=== PATIENT | male | born 1955 | race Caucasian/White ===

== ENCOUNTER 2023-05-07 11:01 | Outpatient (AMB) | payer MEDICARE, SELFPAY ==
[2023-05-07 11:07] VITALS: BP 130/70; PULSE 59; O2SAT 96; BMI 37.3
--- NOTE | 2023-05-07 11:07 | A.OFFPC_ITS ---
Vital Signs 05/07/23 11:07 Height 5 ft 7 in Weight 238 lb BMI 37.3 BP 130/70 Blood Pressure Location Lt brachial Position Sitting Pulse 59 Pulse Source Pulse Oximeter Pulse Oximetry (%) 96 Oxygen Delivery Method Room Air Intake Visit Reasons: f/u diabetes, hypertension and chronic conditions Intake Note: Patient is here for hypertension and chronic conditions. Allergies No Known Allergies Allergy (Verified 05/07/23 11:19) Tobacco use date assessed: 05/07/23 Fall risk assessment: No Falls in past year Last assessed Fall Risk: 05/07/23 Dental Screening Dental Screen Date: 05/07/23 Did you have a dental visit in the last 12 months?: Yes Did you have a dental problem in the last 6 months where you did not have access to dental care?: No Was dental information given to patient?: Patient has dentist HPI f/u diabetes, hypertension and chronic conditions HPI Details 67 y/o male presents to f/u diabetes typ e 1, hypertension and chronic conditions. Diabetes type 1 managed at the [facility]. Labs were drawn at [facility] 05/01/23. TSH level 3.13. Triglycerides 91. HDL low at 33. LDL 52. TC 103. He is on artovastatin 80mg and ezetimibe 10mg. Blood pressure today 130/70. He is on lisinopril 10mg. 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 1. Little interest or pleasure in doing things: not at all 2. Feeling down, depressed, or hopeless: not at all 3. Trouble falling or staying asleep, or sleeping too much: not at all 4. Feeling tired or having little energy: not at all 5. Poor appetite or overeating: not at all 6. Feeling bad about yourself - or that you are a failure or have let yourself or your family down: not at all 7. Trouble concentrating on things, such as reading the newspaper or watching television: not at all 8. Moving or speaking so slowly that other people could have noticed. Or the opposite - being so fidgety or restless that you have been moving around a lot more than usual: not at all 9. Thoughts that you would be better off or of hurting yourself in some way: not at all Total score: 0 Depression Screening Interpretation: Negative Depression Screening Done: Yes 85522 - PHQ-9 Billing: Yes Source: Developed by Drs. Enio Do, Jessica Queen, Teddy Davis and colleagues, with an educational min from [employer]. Thrive Questionnaire Date Thrive assessed: 05/07/23 I am a: Patient What is your living situation today?: I have a steady place to live Within the past 12 months, did the food you bought not last and you didn't have the money to get more?: Never true Within the past 12 months, did you worry whether your food would run out before you got money to buy more?: Never true Do you have trouble paying for medicines?: No Do you have trouble getting transportation to medical appointments?: No Do you have trouble paying your heating and electricity bill?: No Do you have trouble taking care of your child, family member or friend?: No Do you have trouble with day-to-day activities such as bathing, preparing meals, shopping, managing finances, etc.?: No Are you currently unemployed and looking for a job?: No Are you interested in more education?: No THRIVE Score: 0 AUDIT C Alcohol Use Questionnaire (AUDIT-C) 1. How often do you have a drink containing alcohol?: Never 3. How often do you have six or more drinks on one occasion?: Never Total Score: 0 ASIF-7 AMB Questionnaire ASIF-7 Date ASIF - 7 assessed: 05/07/23 Feeling nervous, anxious, or on edge: 0 = Not at all Not being able to stop or control worryin = Not at all Worrying too much about different things: 0 = Not at all Trouble relaxin = Not at all Being so restless that it is hard to sit still: 0 = Not at all Becoming easily annoyed or irritable: 0 = Not at all Feeling afraid as if something awful might happen: 0 = Not at all Total ASIF-7 score (0-4 normal; 5-9 mild; 10-14 moderate; 15-21 severe): 0 Source: Developed by Drs. Enio Do, Jessica Queen, Teddy Davis and colleagues, with an educational min from [employer]. ASIF-7 Assessment Billing ASIF-7 Assessment Tool: ASIF-7 Assessment 48540 Review of Systems Const Denies chills, Denies fatigue, Denies fever(s), Denies headache(s) and Denies weakness ENT Denies dizziness and Denies headache(s) Card Denies chest pain, Denies lightheadedness, Denies dyspnea and Denies other (Palpitations) Resp Denies cough, Denies dyspnea, Denies wheezing and Denies other ( shortness of breath) Musc Denies numbness and Denies tingling Neuro Denies dizziness, Denies headache(s), Denies numbness, Denies tingling, Denies paresthesias and Denies weakness Psych Denies anxiety and Denies depression Endo Denies fatigue Aller/Immun Denies wheezing Physical exam (Primary Care) Vital Signs: Last Vital Signs Pulse 59 05/07/23 11:07 BP 130/70 05/07/23 11:07 Pulse Ox 96 05/07/23 11:07 Oxygen Delivery Method Room Air 05/07/23 11:07 BMI result Body Mass Index 37.3 Tobacco/Smoking Status: Tobacco use Status Tobacco use date assessed 05/07/23 05/07/23 11:25 Patient Tobacco Use Status Never used Tobacco 05/07/23 11:09 e-Cigarette/Vaping Use Never Used 05/07/23 11:09 PHQ-9: PHQ-9 Score PHQ-9: Total score 0 05/07/23 11:25 Depression Screening Interpretation: Negative Thrive Assessment: Date of Thrive Assessment Date Thrive assessed 05/07/23 05/07/23 11:25 Const General: no acute distress and well developed Nutritional Appearance: well nourished Orientation/consciousness: patient oriented x3 HENMT Head: Yes normocephalic and Yes atraumatic Eyes General: appearance normal, both eyes and all related structures Pupils: Equal, round and reactive pupils present EOM: EOMs intact bilaterally Resp Effort & Inspection: normal respiratory effort Auscultation: clear to auscultation bilaterally Cardio Rate: regular rate Rhythm: regular rhythm Heart sounds: S1 normal heart sound present, S2 normal heart sound present, no gallops, no murmurs and no rubs Neuro General: patient oriented x3 and gait normal Cranial nerves: Yes Equal, round and reactive pupils present Psych Affect: normal affect Assessment and Plan Assessment & Plan (1) Diabetes type 1, controlled: Code(s): E10.9 - Type 1 diabetes mellitus without complications Plan: A1c?on?April? was?6.6%;?good?control.??Goal?is?less?than?7.0% Continue?current?medication?regimen Follow-up?at?the[facility] Up-to-date?with?eye?exam No?wounds?abrasions?or?calluses?on?feet?and?microfilament?test?done?at[facility]?was?normal (2) Essential hypertension: Code(s): I10 - Essential (primary) hypertension Plan: Blood?pressure?is?well?controlled.??Goal?is?less?than?140/90 Continue?current?medication (3) Hyperlipidemia: Code(s): E78.5 - Hyperlipidemia, unspecified Plan: Lipids?well?controlled?on?atorvastatin?and?Zetia,?except?HDL?is?too?low. Encouraged?exercise Patient?plans?to?start?walking?with?his?brother?this?spring (4) Hypothyroidism (acquired): Code(s): E03.9 - Hypothyroidism, unspecified Plan: Thyroid?hormone?levels?within?normal?range Continue?current?medication?and?we?will?recheck?in?six-months (5) Low HDL (under 40): Code(s): E78.6 - Lipoprotein deficiency Plan: As?above,?increase?exercise (6) Low vitamin D level: Code(s): R79.89 - Other specified abnormal findings of blood chemistry Plan: Mildly?low?vitamin- D?level.??Encouraged?him?to?consider?a?supplement?through?the?winter?months. He?can?use?an?OTC?supplement?and?if?vitamin- D?is?still?low?at?next?check,?we?can?consider?a?prescription?supplement. Orders: Orders Comprehensive [place]. Panel Fast Today Z00.00 - Encounter for general adult medical examination without abnormal findings Lipid Panel Today Z00.00 - Encounter for general adult medical examination without abnormal findings Vitamin D 25-OH Total Today E55.9 - Vitamin D deficiency, unspecified Complete Blood Count Auto Diff Today Z00.00 - Encounter for general adult medical examination without abnormal findings Microalbumin, Random (w Creat) Today I10 - Essential (primary) hypertension Free T4 (Free Thyroxine) Today E03.9 - Hypothyroidism, unspecified Thyroid Stimulating Hormone Today E03.9 - Hypothyroidism, unspecified Triiodothyronine T3 Total Today E03.9 - Hypothyroidism, unspecified Coding Level of Care Code Est Pt Level 4 (69082) Diagnoses Diabetes type 1, controlled E10.9 Essential hypertension I10 Hyperlipidemia E78.5 Hypothyroidism (acquired) E03.9 Low HDL (under 40) E78.6 Low vitamin D level R79.89 Additional Codes ASIF-7 Assessment Billing - ASIF-7 Assessment Tool: ASIF-7 Assessment [id number] ([id number])
== END 2023-05-07 12:09 | disposition home or self-care (01) ==
PROVIDERS: Visit Provider Family Medicine
DX: E10.9 Type 1 diabetes mellitus without complications (principal); I10 Essential (primary) hypertension; E78.5 Hyperlipidemia, unspecified; E03.9 Hypothyroidism, unspecified; E78.6 Lipoprotein deficiency; R79.89 Other specified abnormal findings of blood chemistry
CPT/HCPCS: 99214

== ENCOUNTER 2023-11-05 09:20 | Outpatient (REF) | payer MEDICARE, SELFPAY ==
[2023-11-05 17:45] LABS: MANUAL DIFF FLAG NO
[2023-11-05 18:13] LABS: Basophils Percent Auto 0.3 % (0-2); Eosinophils Absolute Auto 0.2 X10*3/uL (0.0-0.4); Eosinophils Percent Auto 1.7 % (0-4); Hematocrit 42.2 % (42.0-52.0); Hemoglobin 13.8 g/dl (14.0-18.0); Imm Gran Abs Auto 0.05 X10*3/uL (0.00-0.03); Imm Gran Pct Auto 0.5 % (0.0-0.4); Lymphocytes Absolute Auto 2.3 X10*3/uL (1.2-4.9); Mean Corpuscular HGB Conc 32.7 g/dl (31.0-36.0); Mean Corpuscular Hemoglobin 29.7 pg (27.0-33.0); Mean Corpuscular Volume 90.8 fL (80.0-98.0); Mean Platelet Volume 11.6 fL (9.4-12.4); Monocytes Absolute Auto 0.8 X10*3/uL (0.1-1.2); Monocytes Percent Auto 8.1 % (2-11); Neutrophils Absolute Auto 5.9 x10*3/uL (2.0-8.3); Neutrophils Percent Auto 64.4 % (45-73); Platelet Count 234 X10*3/uL (160-400); Red Blood Count 4.65 X10*6/uL (4.60-5.80); Red Cell Distribution Width 13.2 % (11.0-16.0); White Blood Count 9.2 X10*3/uL (4.8-10.8)
[2023-11-05 18:18] LABS: Creatinine Urine 204.38 mg/dL; Microalbum/Creatinine Ratio Ur 13.2 ug/mg cr (<30)
[2023-11-05 18:31] LABS: Alanine Aminotransferase 28 U/L (0-40); Albumin Level 3.8 g/dL (3.5-5.0); Alkaline Phosphatase 74 U/L (39-117); Anion Gap 11 (12-20); Aspartate Amino Transferase 21 U/L (5-37); Bilirubin Total 0.3 mg/dL (0.0-1.0); Blood Urea Nitrogen 29 mg/dL (9-16); Calcium 9.3 mg/dL (8.4-10.2); Carbon Dioxide 30 mmol/L (22-29); Chloride 104 mmol/L (96-108); Cholesterol 114 mg/dL (<200); Estimated Glomerular Filt Rate > 60; Glucose Fasting 114 mg/dL (60-99); HDL Cholesterol 30 mg/dL (>40); LDL Cholesterol Calculated 59 mg/dL (<100); Potassium 4.5 mmol/L (3.3-5.1); Sodium 140 mmol/L (135-145); Total Protein 6.3 g/dL (6.5-8.0); Triglycerides 127 mg/dL (<150)
[2023-11-05 18:37] LABS: Free T4 (Free Thyroxine) 0.91 ng/dL (0.71-1.85); Thyroid Stimulating Hormone 2.93 uIU/mL (0.32-4.0); Vitamin D 25-OH Total 55.1 ng/mL (>30)
[2023-11-06 10:33] LABS: Triiodothyronine T3 Total 94 ng/dL (76-181)
== END 2023-11-05 09:21 | disposition home or self-care (01) ==
LOC: HO.HKASLDS 09:20
PROVIDERS: Visit Provider Family Medicine
DX: Z00.00 Encounter for general adult medical examination without abnormal findings (principal); E03.9 Hypothyroidism, unspecified; E55.9 Vitamin D deficiency, unspecified; I10 Essential (primary) hypertension
CPT/HCPCS: 36415; 80053; 80061; 82043; 82306; 82570; 84439; 84443; 84480; 85025

== ENCOUNTER 2023-11-12 10:36 | Outpatient (AMB) | payer MEDICARE, SELFPAY ==
--- NOTE | 2023-11-12 10:41 | MHC.PC.OV ---
Vital Signs 11/12/23 10:50 Height 5 ft 7 in Weight 251 lb BMI 39.3 BP 124/78 Blood Pressure Location Lt brachial Position Sitting Respiration 14 Pulse 64 Pulse Source Pulse Oximeter Pulse Oximetry (%) 96 Oxygen Delivery Method Room Air Intake Visit Reasons: f/u diabetes, hypertension, chronic conditions Intake Note: Follow up diabetes and htn. Allergies No Known Allergies Allergy (Verified 11/12/23 10:44) Medication List - Last Reconciled 11/12/23 by Nahum Hubbard MD aspirin (Adult Aspirin Regimen) 81 mg PO DAILY 90 days atorvastatin 80 mg PO DAILY 90 days betamethasone dipropionate 0.05% 1 appl topical DAILY blood sugar diagnostic ([employer] Ultra Test strips) 1 strip miscellaneous TID blood-glucose sensor ([employer] Maxime 3 Sensor device) As directed diphenhydramine HCl (Allergy (diphenhydramine)) 25 mg PO BEDTIME ezetimibe 10 mg PO DAILY 90 days glucagon 3 mg/actuation 3 mg intranasal ONCE PRN 30 days hydrocortisone valerate 0.2% 1 appl topical BID PRN ibuprofen 600 mg PO TID PRN 90 days insulin aspart U-100 (Novolog U-100 Insulin aspart) 1 sliding scale dose subcut USEASDIRECTD insulin syringe-needle U-100 As directed lancets As directed levothyroxine 50 mcg PO QAM lisinopril 10 mg PO DAILY 90 days magnesium oxide 500 mg PO DAILY multivitamin (Daily Multi-Vitamin tablet) 1 tab PO DAILY 90 days omega 2-jyc-xeo-fish oil 120-180-500 mg (Fish Oil) 1 cap PO TID-QID 90 days omeprazole 40 mg (2 x 20 mg) PO DAILY sertraline 50 mg PO DAILY 90 days Tobacco use date assessed: 05/07/23 Dental Screening Dental Screen Date: 05/07/23 HPI f/u diabetes, hypertension, chronic conditions HPI Details 68 y/o male presents to f/u type 1 diabetes, hypertension, chronic conditions. Labs drawn 11/05/23. Reviewed labs with pt. Mildly low Hgb at 13.8. Triglycerides 127. TC 114. LDL 59. He is on artovastatin 80mg daily. HDL low at 30. Vitamin D 55.1. He notes he had stopped taking his vitamin D supplement. TSH 2.93, Free T4 0.91, Total T3 94. He is on levothyroxine 50 mcg. Blood pressure today 124/78, 64p. He is on lisinopril 10mg daily. A1c 11/12/23 6.3%. HPI Comments History of Present Illness Details Documentation assistance for Nahum Hubbard MD, was provided by Hernan Jennings,? Granulator Machine Operator on 11/12/2023 at 11:00 AM EST. I, Dr. Hubbard, have read, observed, and verified documentation. 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 Enio Do, Jessica Queen, Teddy Davis and colleagues, with an educational min from [employer]. Review of Systems Const Denies chills, Denies fatigue, Denies fever(s), Denies headache(s) and Denies weakness ENT Denies dizziness and Denies headache(s) Card Denies dyspnea Resp Denies cough, Denies dyspnea, Denies wheezing and Denies other (shortness of breath) Musc Denies numbness and Denies tingling Neuro Denies dizziness, Denies headache(s), Denies numbness, Denies tingling and Denies weakness Psych Denies anxiety and Denies depression Endo Denies fatigue Aller/Immun Denies wheezing Physical exam (Primary Care) Vital Signs: Last Vital Signs Pulse 64 11/12/23 10:50 Resp 14 11/12/23 10:50 BP 124/78 11/12/23 10:50 Pulse Ox 96 11/12/23 10:50 Oxygen Delivery Method Room Air 11/12/23 10:50 BMI result Body Mass Index 39.3 Tobacco/Smoking Status: Tobacco use Status Tobacco use date assessed 05/07/23 11/12/23 10:41 Patient Tobacco Use Status Never used Tobacco 11/12/23 10:41 e-Cigarette/Vaping Use Never Used 11/12/23 10:41 Thrive Assessment: Date of Thrive Assessment Date Thrive assessed 05/07/23 11/12/23 10:41 Const General: well developed; No acute distress Nutritional Appearance: well nourished Orientation/consciousness: patient oriented x3 HENMT Head: Yes normocephalic and Yes atraumatic Eyes General: appearance normal, both eyes and all related structures Pupils: Equal, round and reactive pupils present EOM: EOMs intact bilaterally Resp Effort & Inspection: normal respiratory effort Auscultation: clear to auscultation bilaterally Cardio Rate: regular rate Rhythm: regular rhythm Heart sounds: S1 normal heart sound present, S2 normal heart sound present, no gallops, no murmurs and no rubs Neuro General: patient oriented x3 and gait normal Cranial nerves: Yes Equal, round and reactive pupils present Psych Affect: normal affect Results AMB Hemoglobin A1c AMB Hemoglobin A1c 6.3 % Last Edit by Rita Rosas CMA on 11/12/23 10:57 Results Reviewed Results Reviewed: Laboratory Last Values Hgb A1c (Clinic) 6.3 % (4.0-6.0) H 11/12/23 10:55 Assessment and Plan Assessment & Plan (1) Diabetes type 1, controlled: Code(s): E10.9 - Type 1 diabetes mellitus without complications Plan: A1c?6.3%.??Good?control.??Goal?is?less?than?7% Continue?current?medication Continue?diabetic?diet Continue?exercise Recent?eye?exam.??Up-to-date (2) Essential hypertension: Code(s): I10 - Essential (primary) hypertension Plan: Blood?pressure?is?controlled.??Goal?is?less?than?140/90 Continue?current?medications (3) Hyperlipidemia: Code(s): E78.5 - Hyperlipidemia, unspecified Plan: Lipids?are?controlled HDL?is?still?too?low Continue atorvastatin?and?Zetia Encouraged?exercise (4) Hypothyroidism (acquired): Code(s): E03.9 - Hypothyroidism, unspecified Plan: Continue?levothyroxine - refilled (5) Low HDL (under 40): Code(s): E78.6 - Lipoprotein deficiency Plan: As?above,?encouraged?exercise Will?continue?to?monitor (6) Low vitamin D level: Code(s): R79.89 - Other specified abnormal findings of blood chemistry Plan: Had?been?taking?vitamin-D?and?this?is?much?improved He?has?recently?discontinue?this. He?will?resume as?fall/winter?approaches (7) Encounter for screening for malignant neoplasm of colon: Code(s): Z12.11 - Encounter for screening for malignant neoplasm of colon Plan: Followed?by?Dr Villatoro Close?follow-up?for?polyps Follow-up?with?GI?as?recommended Orders: Orders AMB Hemoglobin A1c Today E10.9 - Type 1 diabetes mellitus without complications Comprehensive [place]. Panel Fast Today Z00.00 - Encounter for general adult medical examination without abnormal findings Complete Blood Count Auto Diff Today Z00.00 - Encounter for general adult medical examination without abnormal findings Microalbumin, Random (w Creat) Today I10 - Essential (primary) hypertension Prostate Specific Antigen Scr Today Z12.5 - Encounter for screening for malignant neoplasm of prostate UA and rflx microscopic Today Z00.00 - Encounter for general adult medical examination without abnormal findings Lipid Panel Today Z00.00 - Encounter for general adult medical examination without abnormal findings TSH reflex Free T4 Today Z00.00 - Encounter for general adult medical examination without abnormal findings Medications: Refilled levothyroxine 50 mcg PO QAM 90 tabs 3RF Discontinued ibuprofen Discontinued Reason: Doctor's Order 600 mg PO TID 90 days PRN 270 tabs 3RF pain Coding Level of Care Code Est Pt Level 4 (05207) Diagnoses Diabetes type 1, controlled E10.9 Essential hypertension I10 Hyperlipidemia E78.5 Hypothyroidism (acquired) E03.9 Low HDL (under 40) E78.6 Low vitamin D level R79.89 Encounter for screening for malignant neoplasm of colon Z12.11
[2023-11-12 10:50] VITALS: BP 124/78; PULSE 64; RESP 14; O2SAT 96; BMI 39.3
== END 2023-11-12 11:20 | disposition home or self-care (01) ==
PROVIDERS: PCP Family Medicine; Visit Provider Family Medicine
DX: E10.9 Type 1 diabetes mellitus without complications (principal); I10 Essential (primary) hypertension; E78.5 Hyperlipidemia, unspecified; E03.9 Hypothyroidism, unspecified; E78.6 Lipoprotein deficiency; R79.89 Other specified abnormal findings of blood chemistry; Z12.11 Encounter for screening for malignant neoplasm of colon
CPT/HCPCS: 83036; 99214

== ENCOUNTER 2024-05-05 08:47 | Outpatient (REF) | payer MEDICARE, SELFPAY ==
[2024-05-05 18:11] LABS: MANUAL DIFF FLAG NO
[2024-05-05 18:37] LABS: Appearance Urine Clear; Color Urine Yellow; Glucose Urine UA Negative (Negative); Leukocyte Esterase Urine Negative (Negative); Nitrite Urine Negative (Negative); Specific Gravity - Urine 1.015 (1.005-1.025); Urine Blood Negative (Negative); Urine Ketones Negative (Negative); Urine Protein Negative (Neg-Trace)
[2024-05-05 18:48] LABS: Alanine Aminotransferase 31 U/L (0-40); Albumin Level 3.9 g/dL (3.5-5.0); Alkaline Phosphatase 82 U/L (39-117); Anion Gap 13 (12-20); Aspartate Amino Transferase 32 U/L (5-37); Bilirubin Total 0.3 mg/dL (0.0-1.0); Blood Urea Nitrogen 26 mg/dL (9-16); Calcium 9.3 mg/dL (8.4-10.2); Carbon Dioxide 26 mmol/L (22-29); Chloride 105 mmol/L (96-108); Cholesterol 107 mg/dL (<200); Estimated Glomerular Filt Rate > 60; Glucose Fasting 79 mg/dL (60-99); HDL Cholesterol 34 mg/dL (>40); LDL Cholesterol Calculated 55 mg/dL (<100); Potassium 4.5 mmol/L (3.3-5.1); Sodium 139 mmol/L (135-145); Total Protein 6.9 g/dL (6.5-8.0); Triglycerides 91 mg/dL (<150)
[2024-05-05 18:56] LABS: Prostate Specific Antigen Scr 1.34 ng/mL (<0.05-4.0)
[2024-05-05 18:57] LABS: Basophils Percent Auto 0.2 % (0-2); Eosinophils Absolute Auto 0.2 X10*3/uL (0.0-0.4); Eosinophils Percent Auto 1.3 % (0-4); Hematocrit 42.4 % (42.0-52.0); Hemoglobin 13.4 g/dl (14.0-18.0); Imm Gran Abs Auto 0.08 X10*3/uL (0.00-0.03); Imm Gran Pct Auto 0.7 % (0.0-0.4); Lymphocytes Absolute Auto 1.8 X10*3/uL (1.2-4.9); Lymphocytes Percent Auto 14.9 % (20-40); Mean Corpuscular HGB Conc 31.6 g/dl (31.0-36.0); Mean Corpuscular Hemoglobin 29.1 pg (27.0-33.0); Mean Corpuscular Volume 92.2 fL (80.0-98.0); Mean Platelet Volume 11.9 fL (9.4-12.4); Monocytes Absolute Auto 0.8 X10*3/uL (0.1-1.2); Monocytes Percent Auto 6.9 % (2-11); Neutrophils Absolute Auto 9.2 x10*3/uL (2.0-8.3); Platelet Count 250 X10*3/uL (160-400); White Blood Count 12.1 X10*3/uL (4.8-10.8)
[2024-05-05 19:06] LABS: TSH reflex Free T4 2.09 uIU/mL (0.32-4.0); Vitamin D 25-OH Total 59.3 ng/mL (>30)
[2024-05-05 19:07] LABS: Creatinine Urine 83.78 mg/dL; Microalbum/Creatinine Ratio Ur 28.6 ug/mg cr (<30)
== END 2024-05-05 08:48 | disposition home or self-care (01) ==
LOC: HO.HKASLDS 08:47
PROVIDERS: Visit Provider Family Medicine
DX: Z00.00 Encounter for general adult medical examination without abnormal findings (principal); Z12.5 Encounter for screening for malignant neoplasm of prostate; I10 Essential (primary) hypertension; E55.9 Vitamin D deficiency, unspecified
CPT/HCPCS: 36415; 80053; 80061; 81003; 82043; 82306; 82570; 84153; 84443; 85025

== ENCOUNTER 2024-05-12 10:36 | Outpatient (AMB) | payer MEDICARE, SELFPAY ==
--- NOTE | 2024-05-12 10:50 | A.OFFPC_ITS ---
Vital Signs 05/12/24 10:52 Height 5 ft 7 in Weight 247 lb BMI 38.7 BP 140/60 H Blood Pressure Location Rt brachial Position Sitting Respiration 16 Pulse 66 Pulse Source Pulse Oximeter Temp 98.3 F Temp Source Oral Pulse Oximetry (%) 97 Oxygen Delivery Method Room Air Intake Visit Reasons: f/u diabetes, HTN, chronic conditions Intake Note: Patient is her to follow up on DM and htn Sheeting Puller Required: No Allergies No Known Allergies Allergy (Verified 05/12/24 10:51) Medication List - Last Reconciled 05/12/24 by Nahum Hubbard MD aspirin (Adult Aspirin Regimen) 81 mg PO DAILY 90 days atorvastatin 80 mg PO DAILY 90 days betamethasone dipropionate 0.05% 1 appl topical DAILY blood sugar diagnostic (in[employer]uch Ultra Test strips) 1 strip miscellaneous TID blood-glucose sensor ([employer] Maxime 3 Sensor device) As directed diphenhydramine HCl (Allergy (diphenhydramine)) 25 mg PO BEDTIME ezetimibe 10 mg PO DAILY 90 days glucagon 3 mg/actuation 3 mg intranasal ONCE PRN 30 days hydrocortisone valerate 0.2% 1 appl topical BID PRN insulin aspart U-100 (Novolog U-100 Insulin aspart) 1 sliding scale dose subcut USEASDIRECTD insulin syringe-needle U-100 As directed lancets As directed levothyroxine 50 mcg PO QAM lisinopril 20 mg PO DAILY magnesium oxide 500 mg PO DAILY multivitamin (Daily Multi-Vitamin tablet) 1 tab PO DAILY 90 days omega 9-nac-gus-fish oil 120-180-500 mg (Fish Oil) 1 cap PO TID-QID 90 days omeprazole 40 mg (2 x 20 mg) PO DAILY sertraline 50 mg PO DAILY 90 days Tobacco use date assessed: 05/07/23 Dental Screening Dental Screen Date: 05/07/23 HPI f/u diabetes, HTN, chronic conditions HPI Details 68 y/o male presents to f/u type 1 diabe kristie, HTN, chronic conditions. Last A1c 11/12/23 6.3%. A1c today 05/12/24 6.2%. Blood pressure today 140/60, 66p. He is on lisinopril 20mg daily. HPI Comments History of Present Illness Details Documentation assistance for Nahum Hubbard MD, was provided by Hernan Jennings,? Mrp Controller on 05/12/2024 at 11:16 AM [place]. I, Dr. Hubbard, have read, observed, and verified documentation. 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 1. Little interest or pleasure in doing things: not at all 2. Feeling down, depressed, or hopeless: not at all 3. Trouble falling or staying asleep, or sleeping too much: not at all 4. Feeling tired or having little energy: not at all 5. Poor appetite or overeating: not at all 6. Feeling bad about yourself - or that you are a failure or have let yourself or your family down: not at all 7. Trouble concentrating on things, such as reading the newspaper or watching television: not at all 8. Moving or speaking so slowly that other people could have noticed. Or the opposite - being so fidgety or restless that you have been moving around a lot more than usual: not at all 9. Thoughts that you would be better off or of hurting yourself in some way: not at all Total score: 0 Source: Developed by Drs. Enio Do, Jessica Queen, Teddy Davis and colleagues, with an educational min from [employer]. Thrive Questionnaire Date Thrive assessed: 05/05/24 I am a: Patient What is your living situation today?: I have a steady place to live Within the past 12 months, did the food you bought not last and you didn't have the money to get more?: Never true Within the past 12 months, did you worry whether your food would run out before you got money to buy more?: Never true Do you have trouble paying for medicines?: No Do you have trouble getting transportation to medical appointments?: No Do you have trouble paying your heating and electricity bill?: No Do you have trouble taking care of your child, family member or friend?: No Do you have trouble with day-to-day activities such as bathing, preparing meals, shopping, managing finances, etc.?: No Are you currently unemployed and looking for a job?: No Are you interested in more education?: No Please select the resources that you would like help with: None Currently or been in a relationship where the following occur: No concerns reported THRIVE Score: 0 AUDIT C Alcohol Use Questionnaire (AUDIT-C) 1. How often do you have a drink containing alcohol?: Never 2. How many drinks containing alcohol do you have on a typical day when you are drinking?: 1 or 2 3. How often do you have six or more drinks on one occasion?: Never Total Score: 0 ASIF-7 AMB Questionnaire ASIF-7 Date ASIF - 7 assessed: 05/07/23 Feeling nervous, anxious, or on edge: 0 = Not at all Not being able to stop or control worryin = Not at all Worrying too much about different things: 0 = Not at all Trouble relaxin = Not at all Being so restless that it is hard to sit still: 0 = Not at all Becoming easily annoyed or irritable: 0 = Not at all Feeling afraid as if something awful might happen: 0 = Not at all Total ASIF-7 score (0-4 normal; 5-9 mild; 10-14 moderate; 15-21 severe): 0 Source: Developed by Drs. Enio Do, Jessica Queen, Teddy Davis and colleagues, with an educational min from [employer]. Review of Systems Const Denies chills, Denies fatigue, Denies fever(s), Denies headache(s) and Denies weakness ENT Denies dizziness and Denies headache(s) Card Denies chest pain, Denies lightheadedness, Denies dyspnea and Denies other (Palpitations) Resp Denies cough, Denies dyspnea, Denies wheezing and Denies other ( shortness of breath) Musc Denies numbness and Denies tingling Neuro Denies dizziness, Denies headache(s), Denies numbness, Denies tingling, Denies paresthesias and Denies weakness Psych Denies anxiety and Denies depression Endo Denies fatigue Aller/Immun Denies wheezing Physical exam (Primary Care) Vital Signs: Last Vital Signs Temp 98.3 F 05/12/24 10:52 Pulse 66 05/12/24 10:52 Resp 16 05/12/24 10:52 BP 140/60 H 05/12/24 10:52 Pulse Ox 97 05/12/24 10:52 Oxygen Delivery Method Room Air 05/12/24 10:52 BMI result Body Mass Index 38.7 Tobacco/Smoking Status: Tobacco use Status Tobacco use date assessed 05/07/23 05/12/24 10:56 Patient Tobacco Use Status Never used Tobacco 05/12/24 10:56 e-Cigarette/Vaping Use Never Used 05/12/24 10:56 PHQ-9: PHQ-9 Score PHQ-9: Total score 0 05/12/24 11:12 Thrive Assessment: Date of Thrive Assessment Date Thrive assessed 05/05/24 05/12/24 10:56 Currently or been in a relationship where the following occur: No concerns reported Const General: no acute distress and well developed Nutritional Appearance: well nourished Orientation/consciousness: patient oriented x3 HENMT Head: Yes normocephalic and Yes atraumatic Eyes General: appearance normal, both eyes and all related structures Pupils: Equal, round and reactive pupils present EOM: EOMs intact bilaterally Resp Effort & Inspection: normal respiratory effort Auscultation: clear to auscultation bilaterally Cardio Rate: regular rate Rhythm: regular rhythm Heart sounds: S1 normal heart sound present, S2 normal heart sound present, no gallops, no murmurs and no rubs Neuro General: patient oriented x3 and gait normal Cranial nerves: Yes Equal, round and reactive pupils present Psych Affect: normal affect Results AMB Hemoglobin A1c AMB Hemoglobin A1c 6.2 % Last Edit by GREG Perez on 05/12/24 11:02 Results Reviewed Results Reviewed: Laboratory Last Values Hgb A1c (Clinic) 6.2 % (4.0-6.0) H 05/12/24 10:57 Coding Level of Care Code Est Pt Level 4 (83673) Diagnoses Elevated WBC count D72.829 Diabetes type 1, controlled E10.9 Essential hypertension I10 Sleep apnea G47.30 Assessment & Plan Assessment & Plan (1) Elevated WBC count: Code(s): D72.829 - Elevated white blood cell count, unspecified Category: Medical Plan: Elevated?white?count?and?pat ient?notes?that?he?has?had?respiratory?congestion/respiratory?infection Crackles?at?bilateral?bases?with?coarse?breath?sounds. Start?Z-Gerard Ordered?chest?x-ray.??If?he?is?feeling?better?he?can?forego?t he?chest?x-ray?but?if?he?is?not?improved?in?the?next?day?or?2?or?is?feeling?wors e,?he?will?get?chest?x-ray?and?let?know. (2) Diabetes type 1, controlled: Code(s): E10.9 - Type 1 diabetes mellitus without complications Category: Medical Plan: A1c?6.2%?today.??Good?control.??Goal?is?less?than?7.0% Continue?current?medication?regimen Continue?diabetic?diet?and?follow-up?at?the[facility]?as?recommended (3) Essential hypertension: Code(s): I10 - Essential (primary) hypertension Category: Medical Plan: Blood?pressure?is?a?little?elevated?today?but?is?generally?well?controlled. Continue?current?medications Continue?exercise?work?at?weight?loss (4) Sleep apnea: Code(s): G47.30 - Sleep apnea, unspecified Category: Medical Plan: Controlled?with?CPAP Stable Orders: Orders AMB Hemoglobin A1c Today E10.9 - Type 1 diabetes mellitus without complications XR chest 2V Today D72.829 - Elevated white blood cell count, unspecified, R09.89 - Other specified symptoms and signs involving the circulatory and re spiratory systems Medications: New azithromycin (Zithromax Z-Gerard) take 500 mg today (day 1), then 250 mg for 4 days (days 2-5) PO 5 days 6 tabs 0RF Changed From lisinopril 10 mg PO DAILY 90 days 90 tabs 3RF To lisinopril 20 mg PO DAILY From levothyroxine 50 mcg PO QAM 90 tabs 1RF To levothyroxine 50 mcg PO QAM 90 days 90 tabs 3RF
[2024-05-12 10:52] VITALS: BP 140/60; PULSE 66; RESP 16; TEMP 36.8; O2SAT 97; BMI 38.7
== END 2024-05-12 11:31 | disposition home or self-care (01) ==
LOC: HO.HMCFM 10:37
PROVIDERS: PCP Family Medicine; Visit Provider Family Medicine
DX: D72.829 Elevated white blood cell count, unspecified (principal); E10.9 Type 1 diabetes mellitus without complications; I10 Essential (primary) hypertension; G47.30 Sleep apnea, unspecified

== ENCOUNTER → 2024-05-12 10:36 | Outpatient (BNVA) | payer MEDICARE, SELFPAY | PROVIDERS: PCP Family Medicine; Visit Provider Family Medicine | DX: D72.829 Elevated white blood cell count, unspecified (principal); E10.9 Type 1 diabetes mellitus without complications; I10 Essential (primary) hypertension; G47.30 Sleep apnea, unspecified | CPT/HCPCS: 83036; 99212 ==

== ENCOUNTER 2024-05-26 11:55 | Outpatient (REF) | payer MEDICARE, SELFPAY ==
--- NOTE | ~2024-05-26 | XR_ITS ---
EXAMINATION: XR CHEST 2 VIEWS HISTORY: D72.829 - Elevated white blood cell count, unspecified COMPARISON: There are no prior studies for comparison. FINDINGS: PA and lateral views of the chest are submitted. The lungs are expanded and clear. There is no pleural effusion, pneumothorax, or pulmonary vascular congestion. The heart is normal in size. There is mild degenerative disc disease of the spine. XR/XR chest 2V IMPRESSION: Clear lungs. Electronically signed by: Enio Hannon MD 05/27/2024 07:30 AM EDT
== END 2024-05-26 11:56 | disposition home or self-care (01) ==
LOC: HO.XRAY 11:55
PROVIDERS: PCP Family Medicine; Visit Provider Family Medicine
DX: D72.829 Elevated white blood cell count, unspecified (principal); R09.89 Other specified symptoms and signs involving the circulatory and respiratory systems
CPT/HCPCS: 71046

== ENCOUNTER → 2024-05-26 12:01 | Outpatient (BNV) | payer MEDICARE, SELFPAY | PROVIDERS: PCP Family Medicine; Visit Provider Radiology Diagnostic Radiology | DX: D72.829 Elevated white blood cell count, unspecified (principal) | CPT/HCPCS: 71046 ==

== ENCOUNTER 2024-11-04 08:56 | Outpatient (REF) | payer MEDICARE, SELFPAY ==
[2024-11-04 13:06] LABS: Appearance Urine Clear; Glucose Urine UA Negative (Negative); PH 6.0 (5.0-9.0); Specific Gravity - Urine 1.015 (1.005-1.025)
[2024-11-04 13:40] LABS: Alanine Aminotransferase 33 U/L (0-40); Albumin Level 4.0 g/dL (3.5-5.0); Alkaline Phosphatase 77 U/L (39-117); Anion Gap 12 (12-20); Aspartate Amino Transferase 28 U/L (5-37); Blood Urea Nitrogen 17 mg/dL (9-16); Calcium 9.1 mg/dL (8.4-10.2); Carbon Dioxide 27 mmol/L (22-29); Chloride 104 mmol/L (96-108); Estimated Glomerular Filt Rate > 60; Potassium 4.1 mmol/L (3.3-5.1); Sodium 139 mmol/L (135-145); Total Protein 6.4 g/dL (6.5-8.0)
[2024-11-04 13:44] LABS: Free T4 (Free Thyroxine) 0.95 ng/dL (0.71-1.85); Thyroid Stimulating Hormone 2.27 uIU/mL (0.32-4.0)
== END 2024-11-04 08:57 | disposition home or self-care (01) ==
LOC: HO.HKASLDS 08:56
PROVIDERS: Visit Provider Family Medicine
DX: Z00.00 Encounter for general adult medical examination without abnormal findings (principal); E10.9 Type 1 diabetes mellitus without complications; E55.9 Vitamin D deficiency, unspecified; E03.9 Hypothyroidism, unspecified; I10 Essential (primary) hypertension
CPT/HCPCS: 36415; 80053; 81003; 82043; 82306; 82570; 84439; 84443; 84480

== ENCOUNTER 2024-11-13 10:20 | Outpatient (AMB) | payer MEDICARE, SELFPAY ==
--- NOTE | 2024-11-13 10:28 | A.OFFPC_ITS ---
Vital Signs 11/13/24 10:34 Height 5 ft 7 in Weight 228 lb BMI 35.7 BP 132/68 Blood Pressure Location Rt brachial Position Sitting Respiration 16 Pulse 65 Pulse Source Pulse Oximeter Temp 97.9 F Temp Source Temporal Artery Scan Pulse Oximetry (%) 96 Oxygen Delivery Method Room Air Intake Visit Reasons: f/u diabetes, chronic conditions Intake Note: Dae presents in the office today for a follow up to diabetes and other chronic conditions. Allergies No Known Allergies Allergy (Verified 11/13/24 10:30) Medication List - Last Reconciled 11/13/24 by Nahum Hubbard MD aspirin (Adult Aspirin Regimen) 81 mg PO DAILY 90 days atorvastatin 80 mg PO DAILY 90 days betamethasone dipropionate 0.05% 1 appl topical DAILY blood sugar diagnostic (oLyfeuch Ultra Test strips) 1 strip miscellaneous TID blood-glucose sensor ([employer] Maxime 3 Sensor device) As directed ezetimibe 10 mg PO DAILY 90 days glucagon 3 mg/actuation 3 mg intranasal ONCE PRN 30 days hydrocortisone valerate 0.2% 1 appl topical BID PRN insulin aspart U-100 (Novolog U-100 Insulin aspart) 1 sliding scale dose subcut USEASDIRECTD insulin syringe-needle U-100 As directed lancets As directed levothyroxine 50 mcg PO QAM 90 days lisinopril 20 mg PO DAILY magnesium oxide 500 mg PO DAILY multivitamin (Daily Multi-Vitamin tablet) 1 tab PO DAILY 90 days omeprazole 40 mg (2 x 20 mg) PO DAILY sertraline 50 mg PO DAILY 90 days tirzepatide (weight loss) (Zepbound) 2.5 mg subcut QWEEK Tobacco use date assessed: 11/13/24 Dental Screening Dental Screen Date: 11/13/24 Did you have a dental visit in the last 12 months?: Yes Did you have a dental problem in the last 6 months where you did not have access to dental care?: No Was dental information given to patient?: Patient has dentist HPI f/u diabetes, chronic conditions HPI Details 69 y/o male presents to f/u type 1 diabe kristie. A1c today 11/13/24 6.0%. Blood pressure today 132/68, 65p. He is on lisinopril 20mg daily. HPI Comments History of Present Illness Details Documentation assistance for Nahum Hubbard MD, was provided by Hernan Jennings,? Improvement Rn on at 11:01 AM EST. I, Dr. Hubbard, have read, observed, and verified documentation. ? 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 Current occupational exposures/hazards: No Cognitive needs: No Hearing needs: No Vision needs: No Questionnaire Thrive Questionnaire Date Thrive assessed: 05/05/24 I am a: Patient What is your living situation today?: I have a steady place to live Within the past 12 months, did the food you bought not last and you didn't have the money to get more?: Never true Within the past 12 months, did you worry whether your food would run out before you got money to buy more?: Never true Do you have trouble paying for medicines?: No Do you have trouble getting transportation to medical appointments?: No Do you have trouble paying your heating and electricity bill?: No Do you have trouble taking care of your child, family member or friend?: No Do you have trouble with day-to-day activities such as bathing, preparing meals, shopping, managing finances, etc.?: No Are you currently unemployed and looking for a job?: No Are you interested in more education?: No Please select the resources that you would like help with: None Currently or been in a relationship where the following occur: No concerns reported THRIVE Score: 0 ASIF-7 AMB Questionnaire ASIF-7 Date ASIF - 7 assessed: 05/07/23 Source: Developed by Drs. Enio Do, Jessica Queen, Teddy Davis and colleagues, with an educational min from [employer]. Review of Systems Const Denies chills, Denies fatigue, Denies fever(s), Denies headache(s) and Denies weakness ENT Denies dizziness and Denies headache(s) Card Denies dyspnea Resp Denies cough, Denies dyspnea, Denies wheezing and Denies other (shortness of breath) Musc Denies numbness and Denies tingling Neuro Denies dizziness, Denies headache(s), Denies numbness, Denies tingling and Denies weakness Psych Denies anxiety and Denies depression Endo Denies fatigue Aller/Immun Denies wheezing Physical exam (Primary Care) Vital Signs: Last Vital Signs Temp 97.9 F 11/13/24 10:34 Pulse 65 11/13/24 10:34 Resp 16 11/13/24 10:34 BP 132/68 11/13/24 10:34 Pulse Ox 96 11/13/24 10:34 Oxygen Delivery Method Room Air 11/13/24 10:34 BMI result Body Mass Index 35.7 Tobacco/Smoking Status: Tobacco use Status Tobacco use date assessed 11/13/24 11/13/24 10:38 Patient Tobacco Use Status Never used Tobacco 11/13/24 10:34 e-Cigarette/Vaping Use Never Used 11/13/24 10:34 Thrive Assessment: Date of Thrive Assessment Date Thrive assessed 05/05/24 11/13/24 10:30 Currently or been in a relationship where the following occur: No concerns reported Const General: well developed; No acute distress Nutritional Appearance: well nourished Orientation/consciousness: patient oriented x3 HENMT Head: Yes normocephalic and Yes atraumatic Eyes General: appearance normal, both eyes and all related structures Pupils: Equal, round and reactive pupils present EOM: EOMs intact bilaterally Resp Effort & Inspection: normal respiratory effort Neuro General: patient oriented x3 and gait normal Cranial nerves: Yes Equal, round and reactive pupils present Psych Affect: normal affect Results AMB Hemoglobin A1c 2 AMB Hemoglobin A1c 6.0 % Last Edit by Gina Ferris MA on 11/13/24 10:47 Results Reviewed Results Reviewed: Laboratory Last Values Hgb A1c (Clinic) 6.0 % (4.0-6.0) 11/13/24 10:27 Coding Level of Care Code Est Pt Level 4 (58749) Diagnoses Diabetes type 1, controlled E10.9 Essential hypertension I10 Hyperlipidemia E78.5 Immunization counseling Z71.85 Assessment & Plan Assessment & Plan (1) Diabetes type 1, controlled: Code(s): E10.9 - Type 1 diabetes mellitus without complications Category: Medical Plan: Type 1 diabetes, well controlled with A1c at 6.0%. Managed at the [facility], Dr. Charles. 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 Charles is retiring. Eye exam is up-to-date. He does have background diabetic retinopathy bilaterally. Is eye doctor recommended ongoing good blood sugar control. (2) Essential hypertension: Code(s): I10 - Essential (primary) hypertension Category: Medical Plan: Blood pressure is controlled. Blood pressure medication was increased about 6 months ago - lisinopril increased from 10 mg daily to 20 mg daily Continue current medication regimen (3) Hyperlipidemia: Code(s): E78.5 - Hyperlipidemia, unspecified Category: Medical Plan: Lipids are well controlled. We will be rechecking these with his next blood draw in about 6 months (4) Immunization counseling: Code(s): Z71.85 - Encounter for immunization safety counseling Category: Medical Plan: Due for flu shot and COVID shot which I recommended. Orders: Orders AMB Hemoglobin A1c Today E10.9 - Type 1 diabetes mellitus without complications Comprehensive [place]. Panel Fast Today Z00.00 - Encounter for general adult medical examination without abnormal findings Complete Blood Count Auto Diff Today Z00.00 - Encounter for general adult medical examination without abnormal findings Microalbumin, Random (w Creat) Today I10 - Essential (primary) hypertension Prostate Specific Antigen Scr Today Z12.5 - Encounter for screening for malignant neoplasm of prostate Lipid Panel Today Z00.00 - Encounter for general adult medical examination without abnormal findings UA CC w/rflx Micro + Cult Today Z00.00 - Encounter for general adult medical examination without abnormal findings Free T4 (Free Thyroxine) Today E03.9 - Hypothyroidism, unspecified Triiodothyronine T3 Total Today E03.9 - Hypothyroidism, unspecified Thyroid Stimulating Hormone Today E03.9 - Hypothyroidism, unspecified
[2024-11-13 10:34] VITALS: BP 132/68; PULSE 65; RESP 16; TEMP 36.6; O2SAT 96; BMI 35.7
== END 2024-11-13 11:20 | disposition home or self-care (01) ==
LOC: HO.HMCFM 10:21
PROVIDERS: PCP Family Medicine; Visit Provider Family Medicine
DX: E10.9 Type 1 diabetes mellitus without complications (principal); I10 Essential (primary) hypertension; E78.5 Hyperlipidemia, unspecified; Z71.85 Encounter for immunization safety counseling

== ENCOUNTER → 2024-11-13 10:20 | Outpatient (BNVA) | payer MEDICARE, SELFPAY | PROVIDERS: PCP Family Medicine; Visit Provider Family Medicine | DX: E10.319 Type 1 diabetes mellitus with unspecified diabetic retinopathy without macular edema (principal); I10 Essential (primary) hypertension; E78.5 Hyperlipidemia, unspecified; Z79.899 Other long term (current) drug therapy; Z71.85 Encounter for immunization safety counseling | CPT/HCPCS: 83036; 99212 ==